=== PATIENT | male | born 1960 | race Caucasian/White ===

== ENCOUNTER 2016-10-22 13:24 | Emergency (ER) | payer OTHER ==
--- NOTE | ~2016-10-22 | CR142 ---
[facility] A Service of [facility] & [facility] RADIOLOGY TEXT RESULTS PATIENT: ALYSON RODARTE LOCATION: [facility] : 62 UNIT #: [id number] AGE: [address]: Mansi Bermudez APRN SEX: M ORDER DR: [id number] [facility] [address] [place], [place] [address] [id number] E MR#: [id number] Acc #: [id number] NAME: ALYSON RODARTE : 1960 SEX: M STUDY DATE/TIME: 10/22/2016 1243 UNIT: [facility] ROOM: STUDY DESCRIPTION: CR Hand Min 3 Views Rt Attending Physician: Mansi Bermudez A.P.R.N. Ordering Physician: Jeffrey Neff M.D. Primary Care Physician: Primary Care Physician No MEDICAL IMAGING REPORT This report is preliminary unless electronic signature is present EXAM Right hand, 3 views, 10/22/2016, 1243 hours. CLINICAL HISTORY Patient states hand got smashed today with pain and swelling of the hand and wrist today. COMPARISON None FINDINGS AP, lateral, and oblique views demonstrate no fracture of the distal radius or ulna. The carpal bones are intact. There is a fracture, acute, of the distal fifth metacarpal better seen on today's hand film. IMPRESSION No wrist fracture or dislocation. Distal fifth metacarpal fracture noted. Dictated by... Ingris Henson M.D. THIS IS AN ELECTRONICALLY VERIFIED REPORT Ingris Henson M.D. at 10/23/2016 9:30 AM MIRACLE/lakeisha TD: 10/22/2016 13:55 JOB #: [id number] MEDICAL IMAGING REPORT Page 1 of 1 COPY
--- NOTE | ~2016-10-22 | CR282 ---
[facility] A Service of [facility] & [facility] RADIOLOGY TEXT RESULTS PATIENT: ALYSON RODARTE LOCATION: [facility] : 62 UNIT #: [id number] AGE: [address]: Mansi Bermudez APRN SEX: M ORDER DR: [id number] [facility] [address] [place], [place] [address] [id number] E MR#: [id number] Acc #: [id number] NAME: ALYSON RODARTE : 1960 SEX: M STUDY DATE/TIME: 10/22/2016 UNIT: [facility] ROOM: STUDY DESCRIPTION: CR Wrist Min 3 View Rt Attending Physician: Mansi Bermudez A.P.R.N. Ordering Physician: Jeffrey Neff M.D. Primary Care Physician: Primary Care Physician No MEDICAL IMAGING REPORT This report is preliminary unless electronic signature is present EXAM Right wrist 10/22/2016 1245 hours HISTORY Hand was crushed today. Hand and wrist pain and swelling. FINDINGS AP, lateral and oblique views demonstrate no fracture of the distal radius or ulna or carpal bones. There is an acute mildly angulated fracture of the distal fifth metacarpal without intraarticular extension. IMPRESSION Acute mildly angulated fracture of the distal fifth metacarpal. No intraarticular extension seen. Dictated by... Ingris Henson M.D. THIS IS AN ELECTRONICALLY VERIFIED REPORT Ingris Henson M.D. at 10/23/2016 9:30 AM Rubina TD: 10/22/2016 14:02 JOB #: [id number] MEDICAL IMAGING REPORT Page 1 of 1 COPY
== END 2016-10-22 14:57 | disposition home or self-care (01) ==
LOC: CFTX 13:24
DX: S62.306A Unspecified fracture of fifth metacarpal bone, right hand, initial encounter for closed fracture (principal); F17.210 Nicotine dependence, cigarettes, uncomplicated; Z88.8 Allergy status to other drugs, medicaments and biological substances; W22.8XXA Striking against or struck by other objects, initial encounter; Y92.098 Other place in other non-institutional residence as the place of occurrence of the external cause
CPT/HCPCS: 29125; 73110; 73130; 99283

== ENCOUNTER 2017-01-28 07:31 | Emergency (ER) | payer OTHER ==
--- NOTE | ~2017-01-28 | CR211 ---
[facility] A Service of [facility] & [facility] RADIOLOGY TEXT RESULTS PATIENT: ALYSON RODARTE LOCATION: [facility] : 62 UNIT #: [id number] AGE: [address]: Layla Ellis APRN SEX: M ORDER DR: [id number] [facility] [address] [place], [place] [address] [id number] E MR#: [id number] Acc #: [id number] NAME: ALYSON RODARTE : 1960 SEX: M STUDY DATE/TIME: 01/28/2017 8:10 UNIT: [facility] ROOM: STUDY DESCRIPTION: CR Ribs Uni 2 View W PA Ch Rt Attending Physician: Layla Ellis A.P.R.N. Ordering Physician: Ed Jasson Constantino M.D. Primary Care Physician: No Primary Care Physician MEDICAL IMAGING REPORT This report is preliminary unless electronic signature is present EXAM Frontal chest right rib series INDICATION Right rib pain today. PROCEDURE Frontal view chest, 3 additional views of the right ribs. COMPARISON None. FINDINGS Heart size normal. Lungs clear. No displaced right-sided rib fracture. IMPRESSION No acute findings. No displaced right rib fracture. Dictated by... Issac Bauer M.D. THIS IS AN ELECTRONICALLY VERIFIED REPORT Issac Bauer M.D. at 01/29/2017 8:26 AM EED/yolande TD: 01/28/2017 11:34 JOB #: [id number] MEDICAL IMAGING REPORT Page 1 of 1 COPY
== END 2017-01-28 09:45 | disposition home or self-care (01) ==
LOC: CFTX 07:31 → CED 07:31 → CFTX 08:01
DX: S29.9XXA Unspecified injury of thorax, initial encounter (principal); F17.210 Nicotine dependence, cigarettes, uncomplicated; Z98.890 Other specified postprocedural states; Z88.8 Allergy status to other drugs, medicaments and biological substances; X50.0XXA Overexertion from strenuous movement or load, initial encounter; Y92.9 Unspecified place or not applicable
CPT/HCPCS: 71101; 96372; 99283; J1885